=== PATIENT | female | born 1965 | race Caucasian/White ===

== ENCOUNTER 2019-06-19 11:23 | Inpatient (IN) | payer OTHER ==
[2019-06-19] MEDS ORDERED: Ondansetron PF 4 MG/2 ML Vial ONE ×2 (11:52→17:06)
[2019-06-19] MEDS ORDERED: Morphine 4 MG/ML VIAL ONE ×2 (11:52→12:55)
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
--- NOTE | 2019-06-19 12:16 | RAD ---
RIGHT ANKLE 3 VIEWS: Date: 06/19/19 HISTORY: Injury. FINDINGS/IMPRESSION: Soft tissue swelling is seen medially and laterally. No fracture at the ankle. However, there is a midfoot fracture which is not well delineated on this a nkle exam. See dedicated foot views. POS: [facility]
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
[2019-06-19] MEDS ORDERED: Ketorolac Tromethamine 30 MG/ML VIAL ONE ×2 (12:55→17:06)
[2019-06-19] MEDS ORDERED: Midazolam HCl 2 mg/2 ml Vial ONE ×2 (13:09→14:05)
[2019-06-19] MEDS ORDERED: Fentanyl 100 MCG/2 ML VIAL ONE ×2 (13:09→13:56)
[2019-06-19] MEDS ORDERED: hydrALAZINE 20 MG/ML VIAL SLOW IVP PRN (13:18)
[2019-06-19] MEDS ORDERED: Dextrose 50% Abboject 50 ML SYRINGE SLOW IVP PRN (13:18)
[2019-06-19] MEDS ORDERED: Dextrose 5% in Water 1,000 ML IV PRN (13:18)
[2019-06-19] MEDS ORDERED: Ondansetron ODT 4 MG TAB PO PRN (13:18)
[2019-06-19] MEDS ORDERED: Insulin Regular 300 UNITS/3 ML VIAL SC PRN (13:18)
[2019-06-19] MEDS ORDERED: Senokot 8.6 MG TAB PO PRN (13:21)
[2019-06-19] MEDS ORDERED: ceFAZolin Sodium (SDC) 2 GM/100 ML BAG ONE (14:00)
[2019-06-19] MEDS ORDERED: Ropivacaine 0.2% 550 ML 550 ML NERVE BLCK SCH (15:45)
[2019-06-19] MEDS ORDERED: Ondansetron PF 4 MG/2 ML Vial IVP PRN (15:45)
[2019-06-19] MEDS ORDERED: HYDROcodone/Acetaminophen 10/325 mg Tablet PO PRN ×2 (15:45)
[2019-06-19] MEDS ORDERED: Promethazine HCl 25 MG/ML VIAL IM PRN ×2 (15:45→16:56)
[2019-06-19] MEDS ORDERED: traMADol HCl 50 MG TAB PO PRN ×2 (15:45)
[2019-06-19] MEDS ORDERED: HYDROcodone/Acetaminophen 5/325 mg Tablet PO PRN ×2 (15:45)
[2019-06-19] MEDS ORDERED: Ketorolac Tromethamine 30 MG/ML VIAL IVP PRN (15:45)
[2019-06-19] MEDS ORDERED: Fentanyl 100 MCG/2 ML VIAL SLOW IVP PRN (15:46)
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
[2019-06-19] MEDS ORDERED: ISOVUE-370 76%-LOCM 1 ML ONE (15:48)
[2019-06-19] MEDS ORDERED: HYDROmorphone 2 MG/ML VIAL SLOW IVP PRN (16:56)
[2019-06-19] MEDS ORDERED: PACU-Morphine 4MG/ML VIAL SLOW IVP PRN (16:56)
[2019-06-19] MEDS ORDERED: Ondansetron HCl/PF 4 MG/2 ML Vial IVP PRN (16:56)
[2019-06-19] MEDS ORDERED: Promethazine HCl 25 MG/ML VIAL SLOW IVP PRN (16:56)
[2019-06-19] MEDS ORDERED: Ropivacaine 0.5% HCl/PF (150 MG/30 ML VIAL) ONE (16:58)
[2019-06-19] MEDS ORDERED: PROPOFOL 200 MG/20 ML VIAL ONE (17:06)
[2019-06-19] MEDS ORDERED: Dexamethasone 20 MG/5 ML VIAL ONE (17:06)
[2019-06-19] MEDS ORDERED: Rocuronium Bromide 10 MG/ML (10ML VIAL) ONE (17:06)
[2019-06-19] MEDS ORDERED: Lidocaine 1% PF 5 ML VIAL ONE (17:06)
[2019-06-19] MEDS ORDERED: Promethazine HCl 25 MG/ML VIAL ONE (17:18)
[2019-06-19] MEDS ORDERED: Acetaminophen 500 MG TAB PO SCH (18:00)
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
[2019-06-19] MEDS: traMADol HCl 50 MG TAB PO SCH (18:26)
[2019-06-19 18:27] VITALS: BMI 32.3
[2019-06-19] MEDS: Gabapentin 100 MG CAP PO SCH (20:50)
[2019-06-19] MEDS: Famotidine 20 MG TAB PO SCH (20:50)
[2019-06-19] MEDS: Ibuprofen 600 MG TAB PO SCH (21:00)
[2019-06-19] MEDS: CEFAZOLIN 2 GM, IV Admixture Fee-Chemo 1 UNITS in Sodium Chloride 0.9% 100 ML IVPB SCH (21:00)
[2019-06-20] MEDS: Acetaminophen 325 MG TAB PO SCH ×4 (00:59→18:03)
[2019-06-20] MEDS: traMADol HCl 50 MG TAB PO SCH ×4 (00:59→18:03)
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
[2019-06-20] MEDS: traMADol HCl 50 MG TAB PO PRN ×3 (04:40→20:01)
[2019-06-20 05:24] LABS: #Basophils 0.1 thou/uL (0.0-0.2); #Lymphocytes 1.5 thou/uL (1.20-3.40); #Monocytes 0.5 thou/uL (0.11-0.59); #Neutrophils 5.8 thou/uL (1.40-6.50); %Basophils 0.7 % (0.0-1.0); %Eosinophils 0.3 % (0.0-10.0); %Lymphocytes 19.1 % (21.0-51.0); %Monocytes 6.9 % (0.0-10.0); %Neutrophils 73.1 % (42.0-75.0); Hemoglobin 11.9 g/dL (12.0-16.0); Mean Corpuscular HGB CONC 32.9 g/dL (32.0-36.0); Mean Corpuscular Hemoglobin 31.2 pg (27.0-31.0); Mean Corpuscular Volume 94.8 fL (78.0-98.0); Mean Platelet Volume 7.9 fL (7.4-10.4); Platelet Count 217 thou/uL (130-400); RBC Distribution Width 12.6 % (11.5-14.5); Red Blood Cell (RBC) Count 3.82 mill/uL (4.20-5.40); White Blood Cell (WBC) Count 7.9 thou/uL (4.8-10.8)
[2019-06-20 05:44] LABS: Anion Gap 12 mmol/L (10-20); BUN (Urea Nitrogen) 11 mg/dL (9.8-20.1); Calc. Creatinine Clearance 131 mL/min (70-130); Calcium 8.5 mg/dL (7.8-10.44); Carbon Dioxide 24 mmol/L (22-29); Chloride 105 mmol/L (98-107); Estimated GFR-MDRD 84; Glucose 96 mg/dL (70-105); Magnesium 1.8 mg/dL (1.6-2.6); Potassium 3.8 mmol/L (3.5-5.1); Sodium 137 mmol/L (136-145)
[2019-06-20] MEDS: CEFAZOLIN 2 GM, IV Admixture Fee-Chemo 1 UNITS in Sodium Chloride 0.9% 100 ML IVPB SCH (06:17)
[2019-06-20] MEDS: Ibuprofen 600 MG TAB PO SCH ×3 (06:18→22:02)
[2019-06-20] MEDS: Gabapentin 100 MG CAP PO SCH ×2 (09:16→21:07)
[2019-06-20] MEDS: Famotidine 20 MG TAB PO SCH ×2 (09:16→21:06)
[2019-06-20] MEDS: Polyethylene Glycol 3350 17 GM Packet PO SCH (09:16)
[2019-06-20] MEDS ORDERED: Fentanyl 100 MCG/2 ML VIAL SLOW IVP SCH (12:30)
[2019-06-20] MEDS: HYDROcodone/Acetaminophen 10/325 mg Tablet PO PRN ×3 (12:33→21:06)
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
[2019-06-20] MEDS: Fentanyl 100 MCG/2 ML VIAL SLOW IVP PRN ×3 (14:32→22:03)
[2019-06-20] MEDS: Enoxaparin Sodium 30 MG/0.3 ML SYRINGE SC SCH (21:07)
[2019-06-20] MEDS: Zolpidem Tartrate 5 MG TAB PO PRN (21:07)
[2019-06-21] MEDS: HYDROcodone/Acetaminophen 10/325 mg Tablet PO PRN ×4 (00:29→13:12)
[2019-06-21] MEDS: Acetaminophen 325 MG TAB PO SCH ×5 (00:29→23:59)
[2019-06-21] MEDS: traMADol HCl 50 MG TAB PO SCH ×5 (00:30→23:59)
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
[2019-06-21] MEDS: traMADol HCl 50 MG TAB PO PRN ×2 (04:08→09:52)
[2019-06-21] MEDS: Ibuprofen 600 MG TAB PO SCH ×3 (06:23→21:36)
[2019-06-21] MEDS: Famotidine 20 MG TAB PO SCH ×2 (08:28→21:01)
[2019-06-21] MEDS: Gabapentin 100 MG CAP PO SCH ×2 (08:28→21:00)
[2019-06-21] MEDS: Enoxaparin Sodium 30 MG/0.3 ML SYRINGE SC SCH ×2 (08:28→21:03)
[2019-06-21] MEDS: Polyethylene Glycol 3350 17 GM Packet PO SCH (08:28)
[2019-06-21] MEDS: HYDROcodone/Acetaminophen 7.5/325 mg Tablet PO PRN ×2 (16:47→21:01)
[2019-06-21] MEDS: Zolpidem Tartrate 5 MG TAB PO PRN (21:02)
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
[2019-06-22] MEDS: traMADol HCl 50 MG TAB PO SCH ×3 (06:01→17:22)
[2019-06-22] MEDS: Ibuprofen 600 MG TAB PO SCH ×3 (06:02→21:11)
[2019-06-22] MEDS: Acetaminophen 325 MG TAB PO SCH ×3 (06:02→17:23)
[2019-06-22] MEDS: Gabapentin 100 MG CAP PO SCH ×2 (08:36→21:11)
[2019-06-22] MEDS: Famotidine 20 MG TAB PO SCH ×2 (08:36→21:11)
[2019-06-22] MEDS: Enoxaparin Sodium 30 MG/0.3 ML SYRINGE SC SCH ×2 (08:36→21:11)
[2019-06-22] MEDS ORDERED: traMADol HCl 50 MG TAB PO PRN (10:04)
[2019-06-22] MEDS: Polyethylene Glycol 3350 17 GM Packet PO SCH (11:53)
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
[2019-06-22] MEDS: HYDROcodone/Acetaminophen 7.5/325 mg Tablet PO PRN (19:41)
[2019-06-22] MEDS: Zolpidem Tartrate 5 MG TAB PO PRN (21:11)
[2019-06-22] MEDS ORDERED: Cyclobenzaprine 10 MG TAB PO PRN (23:18)
[2019-06-23] MEDS: traMADol HCl 50 MG TAB PO SCH ×3 (00:09→13:06)
[2019-06-23] MEDS: Acetaminophen 325 MG TAB PO SCH ×3 (00:09→13:07)
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
[2019-06-23] MEDS: Ibuprofen 600 MG TAB PO SCH ×2 (06:07→14:46)
[2019-06-23] MEDS: Enoxaparin Sodium 30 MG/0.3 ML SYRINGE SC SCH (09:26)
[2019-06-23] MEDS: Gabapentin 100 MG CAP PO SCH (09:27)
[2019-06-23] MEDS: Polyethylene Glycol 3350 17 GM Packet PO SCH (09:28)
[2019-06-23 12:34] VITALS: BP 142/82; TEMP 98.2
[2019-06-23] MEDS ORDERED: Senokot S 8.6-50 MG TAB PO SCH (21:00)
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
== END 2019-06-23 15:10 | disposition home or self-care (01) | DRG 505 ==
LOC: ERS 11:23 → SDC 14:03 → SJJU 17:16
PROVIDERS: ADMIT Surgery; ATTEND Surgery
PROC: 0QSN04Z Reposition Right Metatarsal with Internal Fixation Device, Open Approach (ICD-10-PCS; principal; 2019-06-19)
PROC: 0SSK04Z Reposition Right Tarsometatarsal Joint with Internal Fixation Device, Open Approach (ICD-10-PCS; 2019-06-19)
DX: S92.901A Unspecified fracture of right foot, initial encounter for closed fracture (principal); S82.891A Other fracture of right lower leg, initial encounter for closed fracture; S92.321A Displaced fracture of second metatarsal bone, right foot, initial encounter for closed fracture; S93.334A Other dislocation of right foot, initial encounter; V79.9XXA Bus occupant (driver) (passenger) injured in unspecified traffic accident, initial encounter; Y93.89 Activity, other specified; Y92.415 Exit ramp or entrance ramp of street or highway as the place of occurrence of the external cause
CPT/HCPCS: 29515; 36415; 71260; 74177; 76000; 80048; 83735; 84100; 85025; 93005; 96374; 96375; 96376; A4306; C1713; G0390; J0690; J1100; J1650; J1885; J2001; J2250; J2270; J2405; J2550; J2704; J2795; J3010; J3490; Q9966